=== PATIENT | female | born 1960 | race Caucasian/White ===

== ENCOUNTER 2016-10-11 19:20 | Emergency (ER) | payer OTHER ==
[~2016-10-11] VITALS: Ht 170.2 cm; Wt 79.4 kg
[~2016-10-11 19:20] MED LIST: CLONAZEPAM 1MG T1 MG PO; CLOPIDOGREL75 MG PO; FLEXERIL10 MG PO; GABAPENTIN300 MG PO; ISOSORBIDE MONO30 MG PO; KEFLEX 500MG.500 MG PO; KENALOG0.5% TP; LEXAPRO 10 MG T10 MG PO; MACROBID100 M3 PO; PREDNISONE 20MG20 MG PO; PYRIDIUM200 M2 PO; VISTARIL25 MG PO
[2016-10-11] MEDS ORDERED: TRAZODONE 50MG50 MG PO (19:30)
--- OUTSIDE RECORDS SUMMARY | 2016-10-11 19:36 | External Medical Summary Rpt ---
Demographics Preferred Language Albanian Marital Status Unknown Taoism Affiliation Unknown Race Unknown Ethnic Group Unknown Author Author HEIDY Address Unknown Phone Immunization No patient found.
--- OUTSIDE RECORDS SUMMARY | 2016-10-11 19:36 | External Medical Summary Rpt ---
Author Author [employer] Organization [employer] Address Unknown Phone Unavailable Purpose Continuity of Care Document - through 2016
--- OUTSIDE RECORDS SUMMARY | 2016-10-11 19:36 | External Medical Summary Rpt ---
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
--- OUTSIDE RECORDS SUMMARY | 2016-10-11 19:36 | External Medical Summary Rpt ---
Demographics Preferred Language Montenegrin Marital Status Unknown Nondenominational Affiliation Unknown Race Unknown Ethnic Group Unknown Author Author HEIDY Address Unknown Phone Immunization No patient found.
--- OUTSIDE RECORDS SUMMARY | 2016-10-11 19:36 | External Medical Summary Rpt ---
Author Author , HEIDY MOODY Address Unknown Phone [email or web address] Purpose Continuity of Care Document - 05-25-2011 [...]
--- OUTSIDE RECORDS SUMMARY | 2016-10-11 19:37 | External Medical Summary Rpt ---
Author Author HEIDY Byrne, [employer] Organization [employer] Address Unknown Phone Unavailable Payers Section Payer Plan Name Group ID Member ID Coverage Coverage Start End Date Date BLUE [id number]^[id number] No No CROSS [id number] informati informati BLUE WMW^PLANI on in on in SHIELD D source source data data BLUE B33^BCBS [id number] No No CROSS [id number] informati informati BLUE WMW^PLANI on in on in SHIELD D source source data data Results Bacteria identified in Urine by Culture Observa Value Referen Units Interpr Notes Date tion ce etation Range Bacteri COLONY No No No No May 31 a COUNT: informa informa informa informa 2015 identif >100K tion in tion in tion in tion in 11:56 ied in cfu/ml source source source source PM Urine data data data data by Escheri Culture yenifer coli. XR CHEST PA AND LATERAL Observa Value Referen Units Interpr Notes Date tion ce etation Range Cough No No No No Dec 9 and informa informa informa informa 2013 congest tion in tion in tion in tion in 12:20 ion. source source source source PM Two data data data data views\\. br\\IMPR ESSION: \\.br\\No acute or signifi cant abnorma lity. Decreas ed periphe ral vascula rity.\\. br\\Vasc ular calcifi cations .\\.br\\N o acute infiltr ate. AYLEEN Observa Value Referen Units Interpr Notes Date tion ce etation Range <=16 No mcg/mL Suscept No May 04 informa ible informa 2013 tion in tion in 6:58 AM source source data data <=0.25 No mcg/mL Suscept No May 04 informa ible informa 2013 tion in tion in 6:58 AM source source data data <=4 No mcg/mL Suscept No May 04 informa ible informa 2014 tion in tion in 6:58 AM source source data data <=1 No mcg/mL Suscept No May 04 informa ible informa 2013 tion in tion in 6:58 AM source source data data <=20 No mcg/mL Suscept No May 04 informa ible informa 2013 tion in tion in 6:58 AM source source data data <=1 No mcg/mL Suscept No May 04 informa ible informa 2013 tion in tion in 6:58 AM source source data data 4 No mcg/mL Suscept No May 04 informa ible informa 2013 tion in tion in 6:58 AM source source data data 4 No mcg/mL Suscept No May 04 informa ible informa 2013 tion in tion in 6:58 AM source source data data <=0.12 No mcg/mL Suscept No May 04 informa ible informa 2013 tion in tion in 6:58 AM source source data data <=1 No mcg/mL Suscept No May 04 informa ible informa 2013 tion in tion in 6:58 AM source source data data <=4 No mcg/mL Suscept No May 04 informa ible informa 2013 tion in tion in 6:58 AM source source data data 4 No mcg/mL Suscept No May 04 informa ible informa 2013 tion in tion in 6:58 AM source source data data XR LUMBAR SPINE AP AND LATERAL Observa Value Referen Units Interpr Notes Date tion ce etation Range Examina No No No No May 02 tion: informa informa informa informa 2014 Lumbar tion in tion in tion in tion in 6:33 AM spine 3 source source source source data data data data views\\. br\\Clin ical History : Fall and back pain.\\. br\\Find ings/Im pressio n: No change since August 2012. Spondyl olysis and\\.br \\spondy lolisth esis and disc disease at the L5-S1 level as before. \\.br\\ll c URINE CULTURE Observa Value Referen Units Interpr Notes Date tion ce etation Range URINE COLONY No No No No May 02 CULTURE COUNT: informa informa informa informa 2014 >100K tion in tion in tion in tion in 5:28 AM cfu/ml source source source source Gram data data data data negativ e~COLON Y COUNT: >100K cfu/ml Escheri yenifer coli. URINE Escheri No No No No May 02 CULTURE yenifer informa informa informa informa 2013 coli tion in tion in tion in tion in 5:28 AM source source source source data data data data URINALYSIS, ER Observa Value Referen Units Interpr Notes Date tion ce etation Range Glucose Negativ NEGATIV MG/DL No No May 02 e E informa informa 2013 [Mass/v tion in tion in 5:26 AM olume] source source in data data Urine by Test strip UR Negativ NEGATIV No No No May 02 BILIRUB e E informa informa informa 2013 IN tion in tion in tion in 5:26 AM source source source data data data UR Negativ NEGATIV MG/DL No No May 02 KETONE e E informa informa 2013 tion in tion in 5:26 AM source source data data UR SP 1.010 1.005 - No No No May 02 GRAVITY 30 informa informa informa 2013 tion in tion in tion in 5:26 AM source source source data data data Hemoglo Trace-i NEGATIV No Abnorma No May 02 bin ntact E informa l informa 2013 [Presen tion in tion in 5:26 AM ce] in source source Urine data data by Test strip UR PH 7.0 5.0 - No No No May 02 9.0 informa informa informa 2013 tion in tion in tion in 5:26 AM source source source data data data UR Negativ NEGATIV MG/DL No No May 02 PROTEIN e E informa informa 2013 tion in tion in 5:26 AM source source data data UR 0.2 0.2 - EU/DL No No May 02 UROBILI 1.0 informa informa 2013 NOGEN tion in tion in 5:26 AM source source data data UR Positiv NEGATIV No Abnorma No May 02 NITRITE e E informa l informa 2013 tion in tion in 5:26 AM source source data data UR Small NEGATIV No Abnorma No May 02 LEUKOCY E informa l informa 2013 EDENILSON tion in tion in 5:26 AM source source data data UR Yellow YELLOW No No No May 02 COLOR informa informa informa 2014 tion in tion in tion in 5:26 AM source source source data data data UR Clear CLEAR No No No May 02 CLARITY informa informa informa 2014 tion in tion in tion in 5:26 AM source source source data data data Leukocy 5 - 10 1 - 3 /HPF Abnorma No May 02 edenilson l informa 2013 [#/area tion in 5:34 AM ] in source Urine data sedimen t by Microsc opy high power field UR RBC 1 - 3 1 - 3 /HPF No No May 02 informa informa 2013 tion in tion in 5:34 AM source source data data UR Occasio 3 - 5 /HPF No No May 02 EPITHEL nal informa informa 2014 IAL tion in tion in 5:34 AM source source data data UR Absent ABSENT /LPF No No May 02 CASTS informa informa 2013 tion in tion in 5:34 AM source source data data UR None ABSENT /HPF No No May 02 MUCOUS seen informa informa 2013 tion in tion in 5:34 AM source source data data UR Many ABSENT /HPF Abnorma No May 02 BACTERI l informa 2013 A tion in 5:34 AM source data CRYSTAL Absent ABSENT /HPF No No May 02 S informa informa 2013 tion in tion in 5:34 AM source source data data URINE CULTURE Observa Value Referen Units Interpr Notes Date tion ce etation Range URINE No No No No No Jan 31 CULTURE growth. informa informa informa informa 2013 tion in tion in tion in tion in 9:20 PM source source source source data data data data CHLAMYDIA TRAC / NEISSERIA GONO DNA, SDA Observa Value Referen Units Interpr Notes Date tion ce etation Range SOURCE GENITAL No No No No Feb 01 informa informa informa informa 2013 tion in tion in tion in tion in 4:38 PM source source source source data data data data CHLAMYD NEGATIV No No No No Feb 01 IA E informa informa informa informa 2013 TRACH. tion in tion in tion in tion in 4:38 PM DNA source source source source data data data data NEISSER NEGATIV No No No The BD Feb 01 IA E informa informa informa ProbeTe 2013 GONO. tion in tion in tion in c ET 4:38 PM DNA source source source Chlamyd data data data ia trachom atis/Ne isseria gonorrh oeae Amplifi ed DNAAssa y is conside red a screeni ng test. Accordi ng to CDC guideli raffy, "allpos itive screeni ng tests should be conside red presump tive evidenc e ofinfec tion." Results should be interpr eted in conjunc tion with otherla borator y and clinica l data availab le to the physici an.Test perform ed at: [facility] ark [id number], [place] [address]Lv : WET PREP FOR TRICHOMONAS Observa Value Referen Units Interpr Notes Date ti ce etation Range WET NONE NONE No No No Jan 31 PREP SEEN SEEN informa informa informa 2013 TRICHOM tion in tion in tion in 10:32 ONAS source source source PM data data data WET RARE NONE No No No Jan 31 PREP SEEN informa informa informa 2013 WBC'S tion in tion in tion in 10:32 source source source PM data data data WET NONE NONE No No No Jan 28 PREP SEEN SEEN informa informa informa 2013 YEAST tion in tion in tion in 10:32 source source source PM data data data WET RARE NONE No No No Jan 28 PREP SEEN informa informa informa 2013 BACTERI tion in tion in tion in 10:32 A source source source PM data data data WET NONE NONE No No No Jan 31 PREP SEEN SEEN informa informa informa 2013 CLUE tion in tion in tion in 10:32 CELLS source source source PM data data data URINALYSIS, ER Observa Value Referen Units Interpr Notes Date tion ce etation Range Glucose Negativ NEGATIV MG/DL No DIPSTIC Jan 31 e E informa K 2012 [Mass/v tion in RESULTS 9:20 PM olume] source MAY BE in data Urine INACCUR by Test ATE DUE strip TO COLOR INTERFE RENCEOF SPECIME N UR Small NEGATIV No Abnorma No Jan 31 BILIRUB E informa l informa 2012 IN tion in tion in 9:20 PM source source data data UR Negativ NEGATIV MG/DL No No Jan 31 KETONE e E informa informa 2012 tion in tion in 9:20 PM source source data data UR SP 1.015 1.005 - No No No Jan 31 GRAVITY 30 informa informa informa 2012 tion in tion in tion in 9:20 PM source source source data data data Hemoglo Trace-i NEGATIV No Abnorma No Jan 31 bin ntact E informa l informa 2012 [Presen tion in tion in 9:20 PM ce] in source source Urine data data by Test strip UR PH 7.0 5.0 - No No No Jan 31 9.0 informa informa informa 2012 tion in tion in tion in 9:20 PM source source source data data data UR 30 NEGATIV MG/DL Abnorma No Jan 31 PROTEIN E l informa 2012 tion in 9:20 PM source data UR 1.0 0.2 - EU/DL No No Jan 31 UROBILI 1.0 informa informa 2012 NOGEN tion in tion in 9:20 PM source source data data UR Positiv NEGATIV No Abnorma No Jan 31 NITRITE e E informa l informa 2012 tion in tion in 9:20 PM source source data data UR Trace NEGATIV No Abnorma No Jan 31 LEUKOCY E informa l informa 2012 EDENILSON tion in tion in 9:20 PM source source data data UR [place] YELLOW No Abnorma No Jan 31 COLOR informa l informa 2012 tion in tion in 9:20 PM source source data data UR Slightl CLEAR No No No Jan 31 CLARITY y informa informa informa 2012 Cloudy tion in tion in tion in 9:20 PM source source source data data data Leukocy 10 - 20 1 - 3 /HPF Abnorma No Jan 31 edenilson l informa 2012 [#/area tion in 9:39 PM ] in source Urine data sedimen t by Microsc opy high power field UR RBC 1 - 3 1 - 3 /HPF No No Jan 31 informa informa 2012 tion in tion in 9:39 PM source source data data UR 1 - 3 3 - 5 /HPF No No Jan 31 EPITHEL informa informa 2013 IAL tion in tion in 9:39 PM source source data data UR Absent ABSENT /LPF No No Jan 31 CASTS informa informa 2012 tion in tion in 9:39 PM source source data data UR None ABSENT /HPF No No Jan 31 MUCOUS seen informa informa 2012 tion in tion in 9:39 PM source source data data UR Few ABSENT /HPF Abnorma No Jan 31 BACTERI l informa 2013 A tion in 9:39 PM source data CRYSTAL Absent ABSENT /HPF No CULTURE Jan 31 S informa D PER 2013 tion in PROTOCO 9:39 PM source L data PROTEIN, RECHECK Observa Value Referen Units Interpr Notes Date tion ce etation Range PROTEIN NEGATIV NEGATIV No No No Jan 31 , E E informa informa informa 2012 RECHECK tion in tion in tion in 9:39 PM source source 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 NonePro videdHy sterect celine.... YesSPEC IMEN ADEQUAC YSATISF ACTORY FOR EVALUAT ION - VAGINAL PAPGENE RAL CATEGOR IZATION NEGATIV E FOR INTRAEP ITHELIA L LESIONS OR MALIGNA NCYDESC RIPTIVE DIAGNOS ISBENIG N CYTOLOG YCOMMEN TSDESPI TE A REPORTE D OVERALL 15-25% FALSE NEGATIV E RATE, THE PAP SMEAR ISAN EFFECTI VE CANCER SCREENI NG TEST WHEN DONE ON AN ANNUAL BASIS<S ign Out Dr. 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 http:// No No No No Jan 10 CASES [email or web address]/ informa informa informa informa 2012 LIVE.as tion in tion in tion in tion in 7:52 AM /SoftIm source source source source ageWebA data data data data pp_3.1/ show/I4 XkBmDlP zuDtHEe eAj0rZJ mHDxRm7 /AAGnTr F6YE4Hg U+8jgQu pXoWZ7b tig//Dd ndsKRLs kAucb0L RLqX2Mq pohMj1t 3xH^REP ORT ROUTINE CULTURE Observa Value Referen Units Interpr Notes Date tion ce etation Range ROUTINE Normal No No No No Jan 07 bill informa informa informa informa 2013 CULTURE tion in tion in tion in tion in 4:13 PM source source source source data data data data GRAM No No No No No Jan 07 STAIN WBC'S. informa informa informa informa 2013 SMEAR Many tion in tion in tion in tion in 4:13 PM Gram source source source source positiv data data data data e bacilli . CHLAMYDIA TRAC / NEISSERIA GONO DNA, SDA Observa Value Referen Units Interpr Notes Date ti ce etation Range SOURCE GENITAL No No No No Jan 10 informa informa informa informa 2013 tion in tion in tion in tion in 4:23 PM source source source source data data data data CHLAMYD NEGATIV No No No No Jan 10 IA E informa informa informa informa 2013 TRACH. tion in tion in tion in tion in 4:23 PM DNA source source source source data data data data NEISSER NEGATIV No No No The BD Jan 10 IA E informa informa informa ProbeTe 2013 GONO. tion in tion in tion in c ET 4:23 PM DNA source source source Chlamyd data data data ia trachom atis/Ne isseria gonorrh oeae Amplifi ed DNAAssa y is conside red a screeni ng test. Accordi ng to CDC guideli raffy, "allpos itive screeni ng tests should be conside red presump tive evidenc e ofinfec tion." Results should be interpr eted in conjunc tion with otherla borator y and clinica l data availab le to the physici an.Test perform ed at: [facility] ark [id number], [place] [address]Hk : WET PREP FOR TRICHOMONAS Observa Value Referen Units Interpr Notes Date tion ce etation Range WET NONE NONE No No No Oct 4 PREP SEEN SEEN informa informa informa 2013 TRICHOM tion in tion in tion in 10:43 ONAS source source source PM data data data WET NONE NONE No No No Oct 4 PREP SEEN SEEN informa informa informa 2013 WBC'S tion in tion in tion in 10:43 source source source PM data data data WET NONE NONE No No No Oct 4 PREP SEEN SEEN informa informa informa 2013 YEAST tion in tion in tion in 10:43 source source source PM data data data WET RARE NONE No No No Oct 4 PREP SEEN informa informa informa 2013 BACTERI tion in tion in tion in 10:43 A source source source PM data data data WET NONE NONE No No No Oct 4 PREP SEEN SEEN informa informa informa 2013 CLUE tion in tion in tion in 10:43 CELLS source source source PM data data data MAMMO DIGITAL SCREEN BILATERAL Observa Value Referen Units Interpr Notes Date ti ce etation Range Clinica No No No No Nov 14 l informa informa informa informa 2013 Indicat tion in tion in tion in tion in 8:02 AM ion: source source source source This 52 data data data data year old patient present s for new baselin e\\.br\\s creenin g bilater al mammogr am.\\.br \\Compar kaden: Patient felt she had prior studies at [facility] in\\.br\\ [facility] or [facility] but none can be located .\\.br\\R isk Factors : Family history of breast cancer include s mother in her 40's\\.b r\\and materna l grandmo ther, onset age unknown .\\.br\\T issue Density : I: Breast is almost entirel y fat.\\.b r\\Full Result: Digital MLO and CC views were obtaine d with no maligna nt\\.br\\ finding s identif ied or suggest ed.\\.br \\Impres brigitte: Normal new baselin e screeni ng bilater al mammogr am. ACR\\.br \\BI-RAD S CATEGOR Y 1.\\.br\\ Recomme ndation s: Screeni ng bilater al mammogr am in one year.\\. br\\____ _\\.br\\_ _\\.br\\C omputer -aided detecti on was utilize d for the interpr etation of this exam.\\. br\\Eigh t to ten percent of breast cancers are not detecte d by mammogr aphy.\\. br\\Shruthi al breast exams by your physici an and monthly self-ex aminati ons are\\.br \\strong ly recomme nded. This combine d with mammogr aphy will increas e the\\.br \\likeli cordoba for early detecti on of breast cancer. \\.br\\ss MRI LUMBAR SPINE W WO CONTRAST Observa Value Referen Units Interpr Notes Date tion ce etation Range Clinica No No No No Sep 23 l informa informa informa informa 2012 indicat tion in tion in tion in tion in 1:33 PM ion: source source source source Back data data data data pain for years that has progres sed. Right leg\\.br \\pain\\. br\\and numbnes s, no known injury but does a lot of heavy lifting at work and\\.br \\histor y cervica l cancer. \\.br\\Te chnique : MR lumbar spine was perform ed utilizi ng a 1.5 Tiffany magnet\\ .br\\pre - and\\.br \\post intrave nous adminis tration of 7.5 cc Gadovis t gadolin ium contras t.\\.br\\ Compari son: Radiogr aphs of the lumbar spine on 08/27/19 13.\\.br \\Commen ts: Redemon strated is chronic bilater al spondyl olysis at L5 results \\.br\\in \\.br\\gr emanuel 2 spondyl olisthe sis of L5 relativ e to S1 measuri ng approxi mately\\ .br\\15. 7 mm.\\.br \\There is resulta nt minimal retroli sthesis of L4 relativ e to L5 of\\.br\\ approxi mately\\ .br\\2 mm. Degener ative retroli sthesis of L2 relativ e to L3 of 3 mm. Minimal \\.br\\de generat alycia retroli sthesis of L1 relativ e to L2 of 1 to 2 mm and mild\\.b r\\degen erative retroli sthesis of T12 relativ e to L1 of 3 mm. Moderat e\\.br\\d egenera tive\\.b r\\endpl ate changes are present in the lower thoraci c and lumbar spine with\\.b r\\anter ior endplat e spurrin g and Schmorl 's nodes. Vertebr al body heights \\.br\\ar e\\.br\\p reserve d. No focus of suspici ous bone marrow signal alterat ion is\\.br\\ identif ied.\\.b r\\Disc desicca tion with loss of normal fluid signal intensi ty and loss of\\.br\\ disc\\.b r\\heigh t most prevale nt at T10-T11 and T12-L1 and L2-L3 and L5-S1. Vacuum\\ .br\\dis c\\.br\\p henomen on at L5-S1. No abnorma l contras t enhance ment of the vertebr al\\.br\\ bodies. \\.br\\Th e conus termina edenilson normal in signal, positio n, and caliber .\\.br\\A t T10-T11 , imaged on sagitta l sequenc es alone is a T2 posteri or\\.br\\ hyperin tensity \\.br\\zo ne with superim posed right paracen tral protrus ion type disc herniat ion\\.br \\that\\. br\\obli terates the anterio r thecal sac and touches the ventral aspect of the\\.br \\spinal \\.br\\co rd causing ventral deformi ty of the spinal cord and mild cord\\.b r\\compr ession\\ .br\\wit hout posteri or cord impinge ment or signal abnorma lity in the spinal\\ .br\\cor d.\\.br\\ This causes moderat e central canal stenosi s with the central canal\\. br\\tal uring 6.7\\.br \\mm in AP dimensi on. Is no abnorma l enhance ment of the spinal cord at this\\.b r\\level .\\.br\\T here is mild bilater al facet arthrop athy. The neural foramin a are patent. \\.br\\At T11-T12 also imaged on sagitta l sequenc es alone is a T2 posteri or\\.br\\ hyperin tensity zone with underly ing annular fissure with superim posed\\. br\\smal l\\.br\\r ight paracen tral protrus ion type disc herniat ion mildly narrowi ng the\\.br \\right\\ .br\\lat eral recess. This indents upon the anterio r thecal sac without \\.br\\de forming the\\.br \\spinal cord or touchin g the spinal cord and causes minimal central canal\\. br\\sten osis with the central canal measuri ng 9.5 mm in AP dimensi on. There\\. br\\is no\\.br\\ signal abnorma lity in the spinal cord. Mild bilater al facet arthrop athy\\.b r\\is\\.b r\\prese nt. The neural foramin a are patent. \\.br\\At T12-L1, degener ative retroli sthesis causes unfloor ing of the disc.\\. br\\Ther e is\\.br\\ underly ing mild disc bulge. A T2 posteri or hyperin tensity zone is present \\.br\\fr om\\.br\\ underly ing annular fissure and there is a superim posed mild right\\. br\\para central \\.br\\pr otrusio n type disc herniat ion. This contact s the ariel ing right L1\\.br\\ nerve\\. br\\root and mildly displac es the nerve root without change in signal, \\.br\\ca liber, or\\.br\\ abnorma l enhance ment of the nerve root. Clinica l correla tion for\\.br \\radicu lopathy \\.br\\is request ed. This mild to moderat arias narrows the right lateral recess. \\.br\\Ge ometric distort ion of the neural foramin a causes a mild right T12 neural\\ .br\\for aminal stenosi s. The central canal and left neural foramen are\\.br \\otherw ise\\.br \\patent .\\.br\\A t L1-L2, minimal degener ative retroli sthesis causes unfloor ing of the\\.br \\disc.\\ .br\\The re is a T2 posteri or hyperin tensity zone as the disc enters the left\\.b r\\neura l\\.br\\f oramen from underly ing annular fissure . No definit e superim posed disc\\.b r\\herni ation is identif ied. The central canal and neural foramin a are\\.br \\patent .\\.br\\A t L2-L3, there is a mild disc bulge. There is annular fissuri ng along the\\.br \\anteri or aspect of the disc. There is also a posteri or annular tear. There\\. br\\is\\. br\\mild thicken ing of the ligamen ruben flavum on the right and mild soft tissue\\ .br\\fac et\\.br\\ hypertr ophy and mild facet arthrop athy. There is minimal bilater al L2\\.br\\ neural\\ .br\\for aminal stenosi s. The above finding s combine d with epidura l lipomat osis\\.b r\\resul t in mild central canal stenosi s with the central canal measuri ng 9\\.br\\m m in\\.br\\ AP dimensi on and mild narrowi ng of the left lateral recess. \\.br\\At L3-L4, there is an asymmet mel disc bulge to the left that is mild into\\.b r\\the\\. br\\left neural foramen causing mild left L3 neural foramin al stenosi s.\\.br\\ Central \\.br\\ca nal and right neural foramen are patent. \\.br\\At L4-L5, the mild retroli sthesis causes unfloor ing of the disc. Central \\.br\\ca nal\\.br \\and neural foramin a are patent. \\.br\\At L5-S1, there are chronic bilater al pars defects causing grade 2\\.br\\s pondylo listhes is. The geometr ic distort ion of the neural foramin a along\\. br\\with \\.br\\se condary facet arthrop athy result in severe bilater al L5 neural foramin al\\.br\\ stenosi s. There is unroofi ng of the disc. There is posteri or annular \\.br\\fi ssuring \\.br\\al shaheen the disc as well. Extraca nalicul ar synovia l cyst project s posteri or\\.br\\ to the\\.br \\facets and are subcent imeter. \\.br\\Im pressio n:\\.br\\ 1. Chronic bilater al pars defects at L5-S1 cause grade 2\\.br\\s pondylo listhes is.\\.br \\2. Multile teodoro degener ative disc disease of the lower thoraci c and lumbar\\ .br\\spi ne.\\.br \\3. Hypertr ophic changes from facet arthrop athy indent upon the posteri or\\.br\\ thecal\\ .br\\sac at T10-T11 and along with disc herniat ion result in moderat e central \\.br\\ca nal\\.br \\stenos is. The disc herniat ion causes mild cord betty birgitte without signal\\ .br\\abn ormalit y in the spinal cord or posteri or cord impinge ment. Please see\\.br \\commen ts.\\.br \\Report was sent and receive d by Ruth at the office of Butch Ortiz,\\ .br\\ARN P at\\.br\\ approxi mately 10:54 a.m. on 09/24/19 13. Ruth to give report to the\\.br \\clinic todd.\\.b r\\llc XR LUMBAR SPINE AP AND LATERAL Observa Value Referen Units Interpr Notes Date tion ce etation Range Examina No No No No August 26 tion: informa informa informa informa 2013 Lumbar tion in tion in tion in tion in 5:38 PM spine source source source source three data data data data views.\\ .br\\Cli nical History : Pain.\\. br\\Find ings: There are pars defects at L5. There is anterol isthesi s of L5\\.br\\ upon S1.\\.br \\There is complet e obliter ation of the L5/S1 disc space. The remaind er is\\.br\\ unremar kable.\\ .br\\Imp ression :\\.br\\1 . Spondyl olysis of L5 with grade-I I spondyl olisthe sis of L5 upon S1.\\.br \\2. Degener ative disc disease L5/S1.\\ .br\\Not e: If pain and/or clinica l concern persist s, conside r additio nal\\.br \\imagin g\\.br\\e valuati on.\\.br \\mm XR CHEST PA AND LATERAL Observa Value Referen Units Interpr Notes Date ti ce etation Range Indicat No No No No Jun 01 ion: informa informa informa informa 2012 Cough tion in tion in tion in tion in 5:37 AM and source source source source history data data data data of smoking .\\.br\\T echniqu e: PA and lateral radiogr aphs of the chest.\\ .br\\Com parison : 3 and 08/19/19 12.\\.br \\Commen ts: The lung jiménez are well aerated without focal consoli dation to\\.br\\ suggest pneumon ia. There is no pleural effusio n, pulmona ry edema, or\\.br\\ pneumot horax. The cardiom ediasti nal silhoue tte is within normal limits. The\\.br \\visual ized regiona l osseous structu res are intact. \\.br\\Im pressio n: No active disease of the chest. Stable exam. XR CHEST PA AND LATERAL Observa Value Referen Units Interpr Notes Date ti ce etation Range Exam: No No No No May 11 PA and informa informa informa informa 2012 lateral tion in tion in tion in tion in 5:03 PM views source source source source of the data data data data chest, 3.\\.br\\ Compari son: 08/19/19 12.\\.br \\Indica tion: Cough, congest ion.\\.b r\\Findi ngs: PA and lateral views of the chest demonst rate stable appeara nce\\.br \\of the\\.br \\medias tinal and cardiac size. The lungs are clear. Pulmona ry vascula ture\\.b r\\is\\.b r\\stabl e in appeara nce. No acute osseous or soft tissue abnorma lity is\\.br\\ identif ied.\\.b r\\Chron ic interst itial marking s are noted bilater ally.\\. br\\Impr ession: No acute cardiop ulmonar y abnorma lity.\\. br\\lkv INFLUENZA A ANTIGEN Observa Value Referen Units Interpr Notes Date tion ce etation Range INFLUEN NEGATIV NEGATIV No No No May 11 ZA A E E informa informa informa 2013 ANTIGEN tion in tion in tion in 4:16 PM source source source data data data INFLUENZA B ANTIGEN Observa Value Referen Units Interpr Notes Date tion ce etation Range INFLUEN NEGATIV NEGATIV No No No May 11 ZA B E E informa informa informa 2013 ANTIGEN tion in tion in tion in 4:16 PM source source source data data data STREP-A SCREEN Observa Value Referen Units Interpr Notes Date tion ce etation Range STREP-A NEGATIV NEGATIV No No BETA May 11 SCREEN E E informa informa STREP 2013 tion in tion in CULTURE 4:09 PM source source data data PERFORM ED AYLEEN Observa Value Referen Units Interpr Notes Date tion ce etation Range <=16 No mcg/mL Suscept No Jan 04 informa ible informa 2012 tion in tion in 7:41 AM source source data data <=0.25 No mcg/mL Suscept No Jan 04 informa ible informa 2011 tion in tion in 7:41 AM source source data data <=4 No mcg/mL Suscept No Jan 04 informa ible informa 2011 tion in tion in 7:41 AM source source data data <=1 No mcg/mL Suscept No Jan 04 informa ible informa 2011 tion in tion in 7:41 AM source source data data <=20 No mcg/mL Suscept No Jan 04 informa ible informa 2011 tion in tion in 7:41 AM source source data data <=1 No mcg/mL Suscept No Jan 04 informa ible informa 2011 tion in tion in 7:41 AM source source data data <=2 No mcg/mL Suscept No Jan 04 informa ible informa 2011 tion in tion in 7:41 AM source source data data <=0.12 No mcg/mL Suscept No Jan 04 informa ible informa 2011 tion in tion in 7:41 AM source source data data <=1 No mcg/mL Suscept No Jan 04 informa ible informa 2012 tion in tion in 7:41 AM source source data data <=2 No mcg/mL Suscept No Jan 04 informa ible informa 2012 tion in tion in 7:41 AM source source data data URINE CULTURE Observa Value Referen Units Interpr Notes Date ti ce etation Range URINE COLONY No No No No Sep 29 CULTURE COUNT: informa informa informa informa 2012 10-100K tion in tion in tion in tion in 1:28 PM cfu/ml source source source source data data data data Escheri yenifer coli. URINE Escheri No No No No Sep 29 CULTURE yenifer informa informa informa informa 2012 coli tion in tion in tion in tion in 1:28 PM source source source source data data data data URINALYSIS Observa Value Referen Units Interpr Notes Date ti ce etation Range UR NEGATIV NEGATIV MG/DL No No Sep 29 GLUCOSE E E informa informa 2011 tion in tion in 1:36 PM source source data data UR NEGATIV NEGATIV MG/DL No No Sep 29 BILIRUB E E informa informa 2011 IN tion in tion in 1:36 PM source source data data UR NEGATIV NEGATIV MG/DL No No Sep 29 KETONE E E informa informa 2011 tion in tion in 1:36 PM source source data data UR SP 1.010 1.005 - No No No Sep 29 GRAVITY 30 informa informa informa 2011 tion in tion in tion in 1:36 PM source source source data data data UR NEGATIV NEGATIV MG/DL No No Sep 29 BLOOD E E informa informa 2011 tion in tion in 1:36 PM source source data data UR PH 7.0 5.0 - No No No Sep 29 9.0 informa informa informa 2011 tion in tion in tion in 1:36 PM source source source data data data UR NEGATIV NEGATIV MG/DL No No Sep 29 PROTEIN E E informa informa 2011 tion in tion in 1:36 PM source source data data UR <2.0 <2.0 No No No Sep 29 UROBILI informa informa informa 2011 NOGEN tion in tion in tion in 1:36 PM source source source data data data UR NEGATIV NEGATIV MG/DL No No Sep 29 NITRITE E E informa informa 2011 tion in tion in 1:36 PM source source data data UR MODERAT NEGATIV MATTEO/UL Abnorma No Sep 29 LEUKOCY E E l informa 2011 TE tion in 1:36 PM source data UR YELLOW YELLOW No No No Sep 29 COLOR informa informa informa 2012 tion in tion in tion in 1:36 PM source source source data data data UR CLEAR CLEAR No No No Sep 29 CLARITY informa informa informa 2011 tion in tion in tion in 1:36 PM source source source data data data UR WBC 10-20 1 - 3 /HPF Abnorma No Sep 29 l informa 2011 tion in 1:50 PM source data UR RBC 1-3 1 - 3 /HPF No No Sep 29 informa informa 2012 tion in tion in 1:50 PM source source data data UR 1-3 3 - 5 /HPF No No Sep 29 SQUAMOU informa informa 2011 S EPI tion in tion in 1:50 PM source source data data UR NONE NONE /HPF No No Sep 29 BACTERI SEEN SEEN informa informa 2011 A tion in tion in 1:50 PM source source data data UR SMALL NONE /HPF No No Sep 29 BUDDING SEEN informa informa 2011 YEAST tion in tion in 1:50 PM source source data data COMPREHENSIVE METABOLIC PANEL Observa Value Referen Units Interpr Notes Date tion ce etation Range Sodium 141 135 - MMOL/L No No August 18 [Moles/ 145 informa informa 2011 volume] tion in tion in 2:44 PM in source source Serum data data or Plasma Potassi 4.0 3.6 - MMOL/L No No August 18 um 5.0 informa informa 2011 [Moles/ tion in tion in 2:44 PM volume] source source in data data Serum or Plasma Chlorid 102 101 - MMOL/L No No August 18 e 111 informa informa 2011 [Moles/ tion in tion in 2:44 PM volume] source source in data data Serum or Plasma Carbon 31 21 - 31 MMOL/L No No August 18 dioxide informa informa 2011 , total tion in tion in 2:44 PM source source [Moles/ data data volume] in Serum or Plasma Glucose 73 70 - MG/DL No No August 18 110 informa informa 2011 [Moles/ tion in tion in 2:44 PM volume] source source in data data Serum or Plasma Creatin 0.7 0.4 - MG/DL No No August 18 ine 1.0 informa informa 2011 [Mass/v tion in tion in 2:44 PM olume] source source in data data Serum or Plasma Urea 12 6 - 20 MG/DL No No August 18 nitroge informa informa 2011 n tion in tion in 2:44 PM [Mass/v source source olume] data data in Serum or Plasma Calcium 9.5 8.5 - MG/DL No No August 18 10.5 informa informa 2011 [Moles/ tion in tion in 2:44 PM volume] source source in data data Serum or Plasma Protein 7.0 6.7 - G/DL No No August 18 8.2 informa informa 2011 [Mass/v tion in tion in 2:44 PM olume] source source in data data Serum or Plasma Albumin 4.6 3.2 - G/DL No No August 18 5.0 informa informa 2011 [Mass/v tion in tion in 2:44 PM olume] source source in data data Serum or Plasma Bilirub 0.3 0.2 - MG/DL No No August 18 in.tota 1.0 informa informa 2011 l tion in tion in 2:44 PM [Mass/v source source olume] data data in Serum or Plasma Alkalin 78 42 - IU/L No No August 18 e 121 informa informa 2011 phospha tion in tion in 2:44 PM tase source source [Enzyma data data tic activit y/volum e] in Serum or Plasma Asparta 17 10 - 42 IU/L No No August 18 te informa informa 2011 aminotr tion in tion in 2:44 PM ansfera source source se data data [Enzyma tic activit y/volum e] in Serum or Plasma Alanine 22 10 - 60 IU/L No No August 18 informa informa 2012 aminotr tion in tion in 2:44 PM ansfera source source se data data [Enzyma tic activit y/volum e] in Serum or Plasma OSMOLAL 280 266 - No No No August 18 ITY 309 informa informa informa 2011 tion in tion in tion in 2:44 PM source source source data data data Albumin 1.9 No No No No August 18 /Globul informa informa informa informa 2011 in tion in tion in tion in tion in 2:44 PM [Mass source source source source ratio] data data data data in Serum or Plasma B/C 17 10 - 20 No No No August 18 informa informa informa 2011 tion in tion in tion in 2:44 PM source source source data data data ESTIMAT 88 No mL/min No *The August 18 ED GFR informa informa estimat 2011 tion in tion in ed 2:44 PM source source Glomeru data data lar Filtrat ion Rate(EG FR) may not beaccur ate for childre n under the age of 18 yrs.T o estimat e the GFR for -Americ ans multipl y theresu lt provide d by 1.21.St age 1 90 mL/min or greater Stage 2 60-89 mL/minS tage 3 30-59 mL/minS tage 4 15-29 mL/minS tage 5 14 mL/min or less CBC Observa Value Referen Units Interpr Notes Date tion ce etation Range Leukocy 9.0 3.4 - THOU No No August 18 edenilson 11.3 informa informa 2011 [#/volu tion in tion in 2:33 PM me] in source source Blood data data by Automat ed count Erythro 4.92 3.65 - MIL No No August 18 cytes 5.16 informa informa 2011 [#/volu tion in tion in 2:33 PM me] in source source Blood data data by Automat ed count Hemoglo 15.8 11.1 - G/DL High No August 18 bin 15.4 informa 2011 [Mass/v tion in 2:33 PM olume] source in data Blood Hematoc 48.7 33.3 - % High No August 18 rit 45.5 informa 2011 [Volume tion in 2:33 PM source Fractio data n] of Blood by Automat ed count Erythro 99.0 81.0 - CU_MIC High No August 18 cyte 98.2 informa 2011 mean tion in 2:33 PM corpusc source ular data volume [Entiti c volume] by Automat ed count Erythro 32.1 27.0 - PG High No August 18 cyte 31.1 informa 2011 mean tion in 2:33 PM corpusc source ular data hemoglo bin [Entiti c mass] by Automat ed count Erythro 32.4 32.6 - G/DL Low No August 18 cyte 34.9 informa 2011 mean tion in 2:33 PM corpusc source ular data hemoglo bin concent ration [Mass/v olume] by Automat ed count Erythro 12.4 11.5 - % No No August 18 cyte 14.5 informa informa 2011 distrib tion in tion in 2:33 PM ution source source width data data [Ratio] by Automat ed count MPV 8.7 6.9 - fl No No August 18 9.9 informa informa 2012 tion in tion in 2:33 PM source source data data Platele 233 146 - THOU No No August 18 ts 374 informa informa 2011 [#/volu tion in tion in 2:33 PM me] in source source Blood data data by Automat ed count Neutrop 56.8 48.8 - % No August 18 hils 75.9 informa informa 2011 [#/volu tion in tion in 2:33 PM me] in source source Blood data data by Automat ed count Lymphoc 35.7 16.3 - % No No August 18 ytes/10 43.9 informa informa 2011 0 tion in tion in 2:33 PM leukocy source source edenilson in data data Blood by Automat ed count Monocyt 5.4 2.1 - % No No August 18 es 13.3 informa informa 2011 [#/volu tion in tion in 2:33 PM me] in source source Blood data data by Automat ed count Eosinop 1.6 0.3 - % No No August 18 hils 5.0 informa informa 2011 [#/volu tion in tion in 2:33 PM me] in source source Blood data data by Automat ed count Basophi 0.5 0.0 - % No No August 18 ls 1.1 informa informa 2012 [#/volu tion in tion in 2:33 PM me] in source source Blood data data by Automat ed count NEUTROP 5.2 1.6 - 10_3/uL No No August 18 HILS 8.5 informa informa 2012 ABS tion in tion in 2:33 PM source source data data LYMPHOC 3.2 0.6 - 10_3/uL No No August 18 YTES 4.9 informa informa 2011 ABS tion in tion in 2:33 PM source source data data MONOCYT 0.5 0.0 - 10_3/uL No No August 18 ES ABS 1.4 informa informa 2012 tion in tion in 2:33 PM source source data data EOSINOP 0.1 0.0 - 10_3/uL No No August 18 HILS 0.5 informa informa 2012 ABS tion in tion in 2:33 PM source source data data BASOPHI 0.0 0.0 - 10_3/uL No No August 18 LS ABS 0.1 informa informa 2012 tion in tion in 2:33 PM source source data data AYLEEN Observa Value Referen Units Interpr Notes Date tion ce etation Range <=16 No mcg/mL Suscept No May 27 informa ible informa 2012 tion in tion in 5:02 AM source source data data <=0.25 No mcg/mL Suscept No May 27 informa ible informa 2012 tion in tion in 5:02 AM source source data data <=4 No mcg/mL Suscept No May 27 informa ible informa 2012 tion in tion in 5:02 AM source source data data <=1 No mcg/mL Suscept No May 27 informa ible informa 2012 tion in tion in 5:02 AM source source data data <=20 No mcg/mL Suscept No May 27 informa ible informa 2012 tion in tion in 5:02 AM source source data data <=1 No mcg/mL Suscept No May 27 informa ible informa 2012 tion in tion in 5:02 AM source source data data <=2 No mcg/mL Suscept No May 27 informa ible informa 2012 tion in tion in 5:02 AM source source data data <=0.12 No mcg/mL Suscept No May 27 informa ible informa 2011 tion in tion in 5:02 AM source source data data <=1 No mcg/mL Suscept No May 27 informa ible informa 2011 tion in tion in 5:02 AM source source data data <=2 No mcg/mL Suscept No May 27 informa ible informa 2012 tion in tion in 5:02 AM source source data data CBC Observa Value Referen Units Interpr Notes Date tion ce etation Range Leukocy 11.2 3.4 - THOU No No May 25 edenilson 11.3 informa informa 2011 [#/volu tion in tion in 1:21 PM me] in source source Blood data data by Automat ed count Erythro 4.59 3.65 - MIL No No May 25 cytes 5.16 informa informa 2011 [#/volu tion in tion in 1:21 PM me] in source source Blood data data by Automat ed count Hemoglo 15.5 11.1 - G/DL High No May 25 bin 15.4 informa 2011 [Mass/v tion in 1:21 PM olume] source in data Blood Hematoc 45.9 33.3 - % High No May 25 rit 45.5 informa 2011 [Volume tion in 1:21 PM source Fractio data n] of Blood by Automat ed count Erythro 99.9 81.0 - CU_MIC High No May 25 cyte 98.2 informa 2011 mean tion in 1:21 PM corpusc source ular data volume [Entiti c volume] by Automat ed count Erythro 33.7 27.0 - PG High No May 25 cyte 31.1 informa 2011 mean tion in 1:21 PM corpusc source ular data hemoglo bin [Entiti c mass] by Automat ed count Erythro 33.7 32.6 - G/DL No No May 25 cyte 34.9 informa informa 2011 mean tion in tion in 1:21 PM corpusc source source ular data data hemoglo bin concent ration [Mass/v olume] by Automat ed count Erythro 13.4 11.5 - % No No May 25 cyte 14.5 informa informa 2012 distrib tion in tion in 1:21 PM ution source source width data data [Ratio] by Automat ed count MPV 8.7 6.9 - fl No No May 25 9.9 informa informa 2012 tion in tion in 1:21 PM source source data data Platele 269 146 - THOU No No May 25 ts 374 informa informa 2011 [#/volu tion in tion in 1:21 PM me] in source source Blood data data by Automat ed count Neutrop 65.5 48.8 - % No No May 25 hils 75.9 informa informa 2011 [#/volu tion in tion in 1:21 PM me] in source source Blood data data by Automat ed count Lymphoc 26.8 16.3 - % No No May 25 ytes/10 43.9 informa informa 2012 0 tion in tion in 1:21 PM leukocy source source edenilson in data data Blood by Automat ed count Monocyt 6.6 2.1 - % No No May 25 es 13.3 informa informa 2011 [#/volu tion in tion in 1:21 PM me] in source source Blood data data by Automat ed count Eosinop 0.7 0.3 - % No No May 25 hils 5.0 informa informa 2011 [#/volu tion in tion in 1:21 PM me] in source source Blood data data by Automat ed count Basophi 0.4 0.0 - % No No May 25 ls 1.1 informa informa 2011 [#/volu tion in tion in 1:21 PM me] in source source Blood data data by Automat ed count NEUTROP 7.3 1.6 - 10_3/uL No No May 25 HILS 8.5 informa informa 2011 ABS tion in tion in 1:21 PM source source data data LYMPHOC 3.0 0.6 - 10_3/uL No No May 25 YTES 4.9 informa informa 2011 ABS tion in tion in 1:21 PM source source data data MONOCYT 0.7 0.0 - 10_3/uL No No May 25 ES ABS 1.4 informa informa 2011 tion in tion in 1:21 PM source source data data EOSINOP 0.1 0.0 - 10_3/uL No No May 25 HILS 0.5 informa informa 2011 ABS tion in tion in 1:21 PM source source data data BASOPHI 0.0 0.0 - 10_3/uL No No May 25 LS ABS 0.1 informa informa 2011 tion in tion in 1:21 PM source source data data ESTIMATED GFR Observa Value Referen Units Interpr Notes Date tion ce etation Range ESTIMAT >90 No mL/min No *The May 25 ED GFR informa informa estimat 2012 tion in tion in ed 12:40 source source Glomeru PM data data lar Filtrat ion Rate(EG FR) may not beaccur ate for childre n under the age of 18 yrs.T o estimat e the GFR for -Americ ans multipl y theresu lt provide d by 1.21.St age 1 90 mL/min or greater Stage 2 60-89 mL/minS tage 3 30-59 mL/minS tage 4 15-29 mL/minS tage 5 14 mL/min or less COMPREHENSIVE METABOLIC PANEL Observa Value Referen Units Interpr Notes Date tion ce etation Range Sodium 138 135 - MMOL/L No No May 25 [Moles/ 145 informa informa 2011 volume] tion in tion in 12:40 in source source PM Serum data data or Plasma Potassi 3.7 3.6 - MMOL/L No No May 25 um 5.0 informa informa 2011 [Moles/ tion in tion in 12:40 volume] source source PM in data data Serum or Plasma Chlorid 103 101 - MMOL/L No No May 25 e 111 informa informa 2011 [Moles/ tion in tion in 12:40 volume] source source PM in data data Serum or Plasma Carbon 29 21 - 31 MMOL/L No No May 25 dioxide informa informa 2011 , total tion in tion in 12:40 source source PM [Moles/ data data volume] in Serum or Plasma Glucose 95 70 - MG/DL No No May 25 110 informa informa 2011 [Moles/ tion in tion in 12:40 volume] source source PM in data data Serum or Plasma Calcium 9.0 8.5 - MG/DL No No May 25 10.5 informa informa 2011 [Moles/ tion in tion in 12:40 volume] source source PM in data data Serum or Plasma Protein 7.3 6.7 - G/DL No No May 25 8.2 informa informa 2011 [Mass/v tion in tion in 12:40 olume] source source PM in data data Serum or Plasma Bilirub 0.5 0.2 - MG/DL No No May 25 in.tota 1.0 informa informa 2011 l tion in tion in 12:40 [Mass/v source source PM olume] data data in Serum or Plasma Creatin 0.5 0.4 - MG/DL No No May 25 ine 1.0 informa informa 2011 [Mass/v tion in tion in 12:40 olume] source source PM in data data Serum or Plasma Alkalin 88 42 - IU/L No No May 25 e 121 informa informa 2011 phospha tion in tion in 12:40 tase source source PM [Enzyma data data tic activit y/volum e] in Serum or Plasma Asparta 18 10 - 42 IU/L No No May 25 te informa informa 2012 aminotr tion in tion in 12:40 ansfera source source PM se data data [Enzyma tic activit y/volum e] in Serum or Plasma Alanine 20 10 - 60 IU/L No No May 25 informa informa 2012 aminotr tion in tion in 12:40 ansfera source source PM se data data [Enzyma tic activit y/volum e] in Serum or Plasma Urea 12 6 - 20 MG/DL No No May 25 nitroge informa informa 2011 n tion in tion in 12:40 [Mass/v source source PM olume] data data in Serum or Plasma Albumin 4.0 3.2 - G/DL No No May 25 5.0 informa informa 2011 [Mass/v tion in tion in 12:40 olume] source source PM in data data Serum or Plasma Albumin 1.2 No No No No May 25 /Globul informa informa informa informa 2011 in tion in tion in tion in tion in 12:40 [Mass source source source source PM ratio] data data data data in Serum or Plasma URINE CULTURE Observa Value Referen Units Interpr Notes Date tion ce etation Range URINE COLONY No No No No Feb 19 CULTURE COUNT: informa informa informa informa 2012 >100K tion in tion in tion in tion in 11:48 cfu/ml source source source source AM Escheri data data data data yenifer coli. URINE Escheri No No No No Feb 19 CULTURE yenifer informa informa informa informa 2012 coli tion in tion in tion in tion in 11:48 source source source source AM data data data data URINALYSIS Observa Value Referen Units Interpr Notes Date tion ce etation Range UR NEGATIV NEGATIV MG/DL No No Feb 19 GLUCOSE E E informa informa 2011 tion in tion in 11:59 source source AM data data UR NEGATIV NEGATIV MG/DL No No Feb 19 BILIRUB E E informa informa 2011 IN ti in ti in 11:59 source source AM data data UR NEGATIV NEGATIV MG/DL No No Feb 19 KETONE E E informa informa 2011 tion in ti in 11:59 source source AM data data UR SP 1.025 1.005 - No No No Feb 19 GRAVITY 30 informa informa informa 2011 tion in ti in ti in 11:59 source source source AM data data data UR SMALL NEGATIV MG/DL Abnorma No Feb 19 BLOOD E l informa 2011 ti in 11:59 source AM data UR PH 6.0 5.0 - No No No Feb 19 9.0 informa informa informa 2011 tion in tion in tion in 11:59 source source source AM data data data UR NEGATIV NEGATIV MG/DL No No Feb 19 PROTEIN E E informa informa 2011 tion in tion in 11:59 source source AM data data UR <2.0 <2.0 No No No Feb 19 UROBILI informa informa informa 2011 NOGEN tion in tion in tion in 11:59 source source source AM data data data UR NEGATIV NEGATIV MG/DL No No Feb 19 NITRITE E E informa informa 2011 tion in tion in 11:59 source source AM data data UR SMALL NEGATIV MATTEO/UL Abnorma No Feb 19 LEUKOCY E l informa 2012 TE tion in 11:59 source AM data UR YELLOW YELLOW No No No Feb 19 COLOR informa informa informa 2012 tion in tion in tion in 11:59 source source source AM data data data UR CLOUDY CLEAR No Abnorma No Feb 19 CLARITY informa l informa 2012 tion in tion in 11:59 source source AM data data UR WBC 20-50 1 - 3 /HPF Abnorma No Feb 19 l informa 2012 tion in 11:59 source AM data UR RBC 5-10 1 - 3 /HPF Abnorma No Feb 19 l informa 2012 tion in 11:59 source AM data UR 1-3 3 - 5 /HPF No No Feb 19 SQUAMOU informa informa 2012 S EPI tion in tion in 11:59 source source AM data data UR NONE NONE /HPF No No Feb 19 MUCOUS SEEN SEEN informa informa 2012 tion in tion in 11:59 source source AM data data UR FEW NONE /HPF Abnorma No Feb 19 BACTERI SEEN l informa 2012 A tion in 11:59 source AM data
--- OUTSIDE RECORDS SUMMARY | 2016-10-11 19:37 | External Medical Summary Rpt ---
Author Author HEIDY Byrne, [employer] Organization [employer] Address Unknown Phone Unavailable Payers Section Payer Plan Name Group ID Member ID Coverage Coverage Start End Date Date BLUE [id number]^[id number] No No CROSS 38W informati informati BLUE WMW^PLANI on in on in SHIELD D source source data data BLUE B33^BCBS [id number] No No CROSS [id number] informati informati BLUE [...] to the physici an.Test perform ed at: [facility] ark [id number], [place] [address]Eo : [phone] WET PREP FOR TRICHOMONAS Observa Value Referen [...] 9:20 PM source source data data UR [place] YELLOW No Abnorma No Jan 31 COLOR [...] PM source source source data data data WEB APPLICATION DEV SPECIALIST CASES Observa Value Referen Units Interpr Notes Date ti ce etation Range WEB APPLICATION DEV SPECIALIST SEE No No No [place] Jan 10 CASES BELOW informa informa informa Daughte 2012 tion in tion in tion in rs 7:52 AM source source source Medical data data data Center2 [address] partmen t of Cytolog HALLEY Arana [id number] -PAPCOP IES TO: IRA IBARRA SUBMITT ED: [...] FLORENCIA COONEY , ([place], ASC[facility])Barney ge 1 WEB APPLICATION DEV SPECIALIST http:// No No No No Jan 10 CASES [email or web address]/ informa informa informa informa 2012 LIVE.as tion in tion in tion in tion in 7:52 AM /SoftIm source source source source ageWebA data data data data pp_3.1/ show/I4 XkBmDlP zuDtHEe sJl7gOB mHDxRm7 /AAGnTr O2ZD2Lt U+8jgQu wVoQT9c tig//Dd ndsKRLs lNcuc1W PSnX0Vo bssJb4v 3xH^REP ORT ROUTINE CULTURE Observa Value Referen [...] to the physici an.Test perform ed at: [facility] ark [id number], [place] [address]Mh : WET PREP FOR TRICHOMONAS Observa Value [...] Patient felt she had prior studies at [facility] in\\.br\\ [facility] or [facility] but none can be located .\\.br\\R isk [...] disc herniat ion causes mild cord betty brigitte without signal\\ .br\\abn ormalit y in the [...]
[2016-10-11 19:40] LABS: URINE BILIRUBIN - DIPSTICK 1+ (NEG); URINE BLOOD NEGATIVE (NEG)
[2016-10-11] MEDS ORDERED: BACTRIM DS 8001 TA1 PO (19:49)
[2016-10-11] MEDS ORDERED: PYRIDIUM100 M2 PO (19:49)
--- NOTE | 2016-10-11 19:50 | [facility]gent [facility] Report ---
History of Present Issue Date/Time Seen by Provider 10/11/161938 Visit Reason Pt arrived:Walked Presenting Problem:PT STATES THURSDAY MORNING SHE BEGAN HAVING BURNING WITH URINATION, LOWER BACK AND STOMACH PRESSURE, AND HEADACHE. STATES HISTORY OF UTI' S. STATES TAKING AZO Location if Accident: Onset of symptoms date/time:10/03/16/ or onset unknown for:MEDICAL HX UNKNOWN Have you (or family members/close friends) recently traveled outside the [place]? N If Yes, where/when: Have you had exposure to infectious disease within the past month? TB? Other? Specify: Patient states that she freqently has UTI state that she noticed yesterday that she began having burning with urination and pain in her lower back and she began taking AZO states That today she still has been having the burning and pain in her back and knew she may need an antibiotic ALLERGIES Coded Allergies: No Known Allergies (09/19/15) Home Medications Reported Medications Isosorbide Mononitrate (Isosorbide Mononitrate ER) 30 MG PO DAILY Escitalopram Oxalate (Lexapro 10MG) 10 MG PO DAILY Gabapentin (Gabapentin 300MG) 300 MG PO TID TRAZODONE HCL (Trazodone HCl) 50 MG PO QHS History Medical History General CAD? Yes Angina: No [place]: No Hypertension? No Hyperlipidemia? Yes CHF? No DVT? No PE? No COPD? No Asthma? No Anemia? No GERD? No Gastric ulcers? No GI Bleed? No Hernia? No Thyroid Problems? No Hypothyroidism? No CVA? No Seizures? No Diabetes? No Renal Insuffiency? No UTI? Yes Stones? No BPH? No GB Disease: No Nephritic Syndrome? No Asplenia? No Hepatitis? No Sickle Cell Disease? No Arthritis? Yes Migraines? No Cataracts? No Glaucoma? No MRSA? No HIV? No TB? No Anxiety? Yes Depression? Yes Cancer? Yes Site: CERVICAL More? No Immunization HX DT/Tetanus 5-10 Years Ago Surgical Hx Previous Surgery?Y CARDIAC STENTS 02/18 CERVIAL CA-LASER SX TONSILLECTOMY C/S PARTIAL HYSTERECTOMY Social History Smoking Hx Smoker: Current Every Day Smoker Tobacco: Yes Type Cigarettes Packs/day < 1 Pack Alcohol Alcohol: No Review of Systems All Other Systems Reviewed and Negative Genitourinary dysuria, frequency, pain. denies: discharge, hematuria. Physical Exam Vital Signs Vital Signs Date Time Temp Pulse Resp B/P Pulse O2 O2 Flow FiO2 Ox Delivery Rate 10/11 1926 97.7 79 18 135/86 96 General Appearance normal appearance, WD/WN, no apparent distress Respiratory Status Yes: trachea midline, chest symmetrical, non tender chest. No: respiratory distress. 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 No Results/Orders Laboratory Tests 10/11/161931: Urine Color ORANGE, Urine Appearance Clear, Urine pH 6.5, Ur Specific [place] 1.020, Urine Protein 100, Urine Ketones NEGATIVE, Urine Blood NEGATIVE, Urine Nitrate POSITIVE H, Urine Bilirubin 1+ H, Urine Urobilinogen 4.0, Ur Leukocyte Esterase NEGATIVE, Urine Glucose 100 Orders Procedure Date/time Status [facility] 10/12 1931 Complete Departure Departure Time of Disposition 1945 Disposition DC Home or Self Care(routine) Clinical Impression Primary Impression: UTI (urinary tract infection) Qualifiers: Urinary tract infection type: site unspecified Hematuria presence: without hematuria Qualified Code: N39.0 - Urinary tract infection, site not specified Condition STABLE Referrals DENICE GARCIA (Family): 3 Days-Call Office if no improvement in symptoms Patient Instructions DI for Urinary Tract Infection (UTI) Additional Instructions Drink plenty of water Wipe front to back Avoid bubble bathes Follow up with family doctor if needed REturn if needed Discharge Counseling Counseled pt/family regarding diagnosis, test results, medications/RX, home care, follow up needs Prescriptions Current Visit Scripts SULFAMETHOXAZOLE W/TRIMETHOPRI (Bactrim Ds Tab) 1 TABLET PO BID #20 TAB Phenazopyridine HCl (Pyridium) 100 MG PO TID #6 TAB at 1949
[2016-10-11 19:57] VITALS: BP 135/86
== END 2016-10-11 19:58 | disposition home or self-care (01) ==
LOC: UTC 19:20
PROVIDERS: Nurse Practitioner
DX: N39.0 Urinary tract infection, site not specified (principal)